=== PATIENT | female | born 1980 | race Caucasian/White ===

== ENCOUNTER 2019-01-24 17:06 | Emergency (ER) | payer MEDICAID ==
[~2019-01-24] VITALS: Ht 149.9 cm; Wt 63.5 kg
[2019-01-24 17:25] VITALS: Ht 149.9 cm; Wt 63.5 kg
[2019-01-24 19:12] VITALS: BP 141/86
== END 2019-01-24 19:13 | disposition home or self-care (01) ==
LOC: ED 17:06 → EDSEX 17:06 → ED 19:13
DX: S29.9XXA Unspecified injury of thorax, initial encounter (principal); V49.49XA Driver injured in collision with other motor vehicles in traffic accident, initial encounter; Y93.I9 Activity, other involving external motion; Y92.413 State road as the place of occurrence of the external cause; Y99.8 Other external cause status
CPT/HCPCS: 36415